=== PATIENT | female | born 1965 | race Caucasian/White ===

== ENCOUNTER 2024-02-07 10:40 | Emergency (ER) | payer OTHER, SELFPAY ==
[2024-02-07] VITALS (35 sets, daily range): BP systolic 62–101; BP diastolic 48–82; PULSE 99–148; RESP 9–31; TEMP 36.2–37.2; O2SAT 92–99
--- NOTE | ~2024-02-07 | CT_ITS ---
EXAMINATION: CT guide absc cath placement DATE: 02/07/2024 16:12 INDICATION: Subdiaphragmatic left upper quadrant abscess TECHNIQUE: The procedure including the risks and benefits was discussed with the patient. Risks discu ssed included bleeding and infection. The patient understood the risks and benefits and agreed to pro ceed. The patient was confirmed to be receiving appropriate antibiotic coverage. The skin overlying the anterior left upper quadrant was prepped and draped in usual sterile fashion. Anesthetic was adm inistered with 1% lidocaine subcutaneously. An 8.5 Fr catheter was inserted into the peritoneal fluid collection by trocar technique. The metal stiffener and trocar needle were removed, and the pigtail tip was locked. Position was confirmed by CT. The catheter was stitched to the skin with suture. Lavinia iotic ligament and a sterile dressing were applied. 50 mL of fluid was aspirated and sent to lab for Gram stain and cultures. The catheter was then attached to suction drainage and was draining addition al purulent fluid at the conclusion of the procedure. There were no immediate complications. The dose -length product was 134.19 mGy-cm. FINDINGS: CT images demonstrate the catheter within the left upper quadrant gas and fluid containing abscess. 50 mL of opaque greenish-yellow foul-smelling and purulent appearing fluid was aspirated for testing. IMPRESSION: 1. Successful CT-guided left upper quadrant abscess drainage. 2. 50 mL fluid was sent for aerobic and anaerobic cultures. Reviewed, dictated and finalized at location A.
--- NOTE | ~2024-02-07 | XR_ITS ---
Portable chest x-ray Comparison: 09/06/2005 Clinical History: Dyspnea Findings: There is mild bibasilar hazy airspace disease. Minimal left pleural effusion. Cardiomedia stinal silhouette is stable. Bones and soft tissues are unremarkable. Impression: Probable mild bibasilar pulmonary edema/atelectasis. Small left pleural effusion. Reviewed, dictated and finalized at location . Impression: Probable mild bibasilar pulmonary edema/atelectasis. Small left pleural effusion.
--- NOTE | ~2024-02-07 | CT_ITS ---
EXAMINATION: CTA chest abdomen pelvis DATE: 02/07/2024 12:16 INDICATION: Dyspnea. Hypotension. Assess for dissection. TECHNIQUE: Computed tomographic angiography (CTA) of the chest, abdomen, and pelvis was performed wit hout and with 100 mL Omnipaque-350 intravenous contrast. Volume-rendered 3D-reconstructions of the ao rta and large arteries were constructed by the technologist on a separate workstation. Automated expo sure control and iterative reconstruction technique were employed. The dose-length product was 1360.6 7 mGy-cm. COMPARISON: None FINDINGS: Chest: Mild elevation of left hemidiaphragm. Very small left pleural effusion. There is consolidation with f luid-filled airspace and bronchi at the basilar segments of the left lower lobe would suggest the con solidation represents combination of atelectasis and potentially superimposed pneumonia. Mild right b asilar atelectasis. No pulmonary edema, right-sided pleural effusion or pneumothorax. Heart size is n ormal. Atherosclerotic coronary artery calcifications. Small pericardial effusion. Thoracic aorta is normal in caliber with no dissection. No pathologically enlarged thoracic lymphadenopathy. Mild thora cic spondylosis with Schmorl's nodes along a few of the endplates in the thoracic spine. Abdomen and pelvis: Postoperative change of prior Christianne-en-Y gastric bypass procedure. Cholecystectomy clips the gallbladd er fossa. Liver, pancreas, right adrenal gland and and bilateral kidneys are normal. 3.6 x 3.3 cm het erogeneously enhancing left adrenal mass. There is a large loculated gas and fluid collection underly ing the elevated left hemidiaphragm which measures 13.8 x 10.2 x 10.2 cm. There are few smaller locul ated fluid collections along the spleen the largest measuring 3.2 x 2.8 cm. No bowel obstruction. Dis tended bladder is unremarkable. The uterus is not identified and has likely been surgically resected. No pathologically enlarged abdominal or pelvic lymphadenopathy. Abdominal aorta is normal in caliber with minimal scattered atherosclerotic plaque and no dissection. Severe lumbar spondylosis. IMPRESSION: 1. Large left subdiaphragmatic gas and fluid collection as well as a few additional significant smal ler loculated perisplenic fluid collections in the left upper quadrant which are suspicious for absce ss of indeterminate etiology. 2. Consolidation at the bilateral lung bases due to recent heart atelectasis although there appears b e some decreased parenchymal enhancement in the collapsed basilar segments of the left lower lobe zay picious for superimposed pneumonia. 3. Very small left pleural effusion. 4. Small pericardial effusion. 5. 3.6 cm heterogeneously enhancing left adrenal mass which could be either benign cystadenoma or mal ignant either primary or metastatic. Consider further evaluation with pre and postcontrast MRI and co rrelation with any prior outside imaging if available. Reviewed, dictated and finalized at location A. IMPRESSION: 1. Large left subdiaphragmatic gas and fluid collection as well as a few addit ional significant smaller loculated perisplenic fluid collections in the left u pper quadrant which are suspicious for abscess of indeterminate etiology. 2. Consolidation at the bilateral lung bases due to recent heart atelectasis al though there appears be some decreased parenchymal enhancement in the collapsed basilar segments of the left lower lobe suspicious for superimposed pneumonia. 3. Very small left pleural effusion. 4. Small pericardial effusion. 5. 3.6 cm heterogeneously enhancing left adrenal mass which could be either abiodun ign cystadenoma or malignant either primary or metastatic. Consider further cecily luation with pre and postcontrast MRI and correlation with any prior outside im aging if availabl
--- NOTE | 2024-02-07 10:47 | ECG_ITS ---
Test Date: 2024-02-07 10:50:34 Measurements Intervals [place] Rate: 136 P: 26 WA: 135 QRS: -32 QRSD: 126 T: 116 QT: 325 QTc: 489 Interpretive Statements SINUS TACHYCARDIA LEFT AXIS DEVIATION INTRAVENTRICULAR CONDUCTION DELAY LEFT VENTRICULAR HYPERTROPHY WITH ST-T CHANGE CANNOT R/O SEPTAL INFARCT, AGE INDETERMINATE BASELINE ARTIFACT- I, II, III, AVR, AVL, AVF ABNORMAL ECG No previous ECG available for comparison Electronically Signed On 02-07-2024 10:59:47 CDT by Quintin Larkin D.O.
--- NOTE | 2024-02-07 10:59 | PC.NURSE ---
Pt with hx HTN, DM, seizures, gastric bypass, chronic low blood pressure presents from home with at least one week of abdominal pain, vomiting, loose stools, not being able to eat much. Pt pale, tachycardic, new oxygen requirement, short of breath. A&Ox4. States she takes Lisinopril, lamotrigine, metformin, lasix, baclofen, trazodone. IV established, at bedside.
[2024-02-07] MEDS: LACTATED RINGERS 1,000 ML 999 ML IV CONT ×4 (11:17→14:48)
[2024-02-07] MEDS: ONDANSETRON INJ 4 MG/2 ML VIAL IV PUSH (11:17)
[2024-02-07] MEDS: MORPHINE SULFATE (*CRX) 4 MG/ML INJ IV PUSH (11:18)
[2024-02-07 11:19] LABS: Hematocrit 40.2 % (37.0-47.0); Hemoglobin 12.6 g/dL (12.0-15.0); Mean Corpuscular HGB Conc 31.3 g/dl (32-36); Mean Corpuscular Hemoglobin 32.3 pg (26-34); Mean Corpuscular Volume 103.1 fl (80-100); Mean Platelet Volume 10.5 fl (7.4-10.4); Platelet Count Result 542 k/mm3 (150-375); Red Cell Distribution Width 13.2 % (11.5-14.5); White Blood Count 21.9 K/mm3 (4.5-10.0)
[2024-02-07 11:29] LABS: Fractional Inspired Oxygen 36 %; HCO3 VBG 14.6 mEq/l (24.0-30.0); pH VBG 7.294 (7.300-7.400)
[2024-02-07 11:31] LABS: PCO2 VBG 30.8 mmHg (42.0-48.0); PO2 VBG < 27.0 mmHg (35.0-45.0)
[2024-02-07 11:32] LABS: Device NASAL CANNULA
[2024-02-07 11:52] LABS: Beta-Hydroxybutyrate/Acetoacetate 0.95 mmol/L (0.02-0.27)
[2024-02-07 11:53] LABS: Albumin Level 3.5 g/dL (3.5-5.1); Alkaline Phosphatase 143 U/L (38-126); Anion Gap 26 mmol/L (4-12); Aspartate Amino Transferase 106 U/L (14-36); Bilirubin,Total 0.9 mg/dL (0.2-1.3); Blood Urea Nitrogen 10 mg/dL (7-17); Calcium 8.7 mg/dL (8.4-10.2); Carbon Dioxide 14 mmol/L (22-30); Chloride 90 mmol/L (98-107); Estimated CRCL calculation 58 ml/min; Estimated Glomerular Filt Rate 57; Glucose 286 mg/dL (65-110); Lipase 75 U/L (23-300); Potassium 3.3 mmol/L (3.4-5.0); Sodium 130 mmol/L (137-145)
[2024-02-07 12:00] LABS: Alanine Aminotransferase 49 U/L (6-35); NT Pro B Type Natriuretic Pept 1370 pg/mL (19.9-100)
--- NOTE | 2024-02-07 12:00 | PC.NURSE ---
Pt appears slightly more responsive, states he feels like she's getting some color back in her face after first liter of fluids. Second liter hung, pt going to CT now on monitor.
[2024-02-07 12:29] LABS: Band Neutrophils Percent 7 % (0-6); Lymphocytes Absolute Manual 3.06 K/mm3 (1.1-4.5); Metamyelocytes Percent 5 %; Monocytes Absolute Manual 0.65 K/mm3 (0.1-0.90); Monocytes Percent Manual 3 % (3-9); Myelocytes Percent 4 %; Neutrophils Percent Manual 67 % (46-73); Platelet Estimate Increased (Adequate); Schistocytes None Seen; Total Cells Counted 100
[2024-02-07 12:30] LABS: Macrocytosis 1+ (NORMAL)
[2024-02-07] MEDS: CEFEPIME 2 GM/NS 50 ML 2 GM/50 ML BAG IVPB (13:42)
--- NOTE | 2024-02-07 13:46 | PC.NURSE ---
MD came to bedside to update pt and on imaging results and plan for drain vs surgery which may be here vs transfer. MD waiting to hear back from radiologist to determine further plan. Pt has third liter LR infusing, antibiotics infusing, blood pressure remains lower, MAPS 65+. Pt A&Ox4, discussing things with and asking appropriate questions. Remains on 4L NC.
[2024-02-07 13:58] LABS: Partial Thromboplastin Time 28.7 Seconds (22.3-36.8)
[2024-02-07 14:01] LABS: INR 1.3; Prothrombin Time 16.5 Seconds (11.1-14.7)
[2024-02-07] MEDS: NOREPINEPHRINE 8 MG/D5W 250 ML 8 MG/250 ML BAG 9.38 MG IV CONT (14:10)
--- NOTE | 2024-02-07 14:11 | ECG_ITS ---
Test Date: 2024-02-07 14:17:22 Measurements Intervals [place] Rate: 108 P: 40 PA: 128 QRS: 13 QRSD: 96 T: 108 QT: 316 QTc: 425 Interpretive Statements SINUS TACHYCARDIA BORDERLINE R WAVE PROGRESSION, ANTERIOR LEADS NONSPECIFIC ST-T WAVE ABNORMALITY- ANTEROLAT/HIGH LAT LEADS Compared to ECG 02/07/2024 10:50:34 HEART RATE HAS DECREASED Electronically Signed On 02-07-2024 15:30:45 CDT by Quintin Larkin D.O.
[2024-02-07 14:43] LABS: Reflex Lactic Acid Yes or No Add Lactic
[2024-02-07 14:45] LABS: Troponin I 0.207 ng/mL (0.000-0.034)
[2024-02-07 14:48] LABS: MRSA (PCR) NOT DETECTED (NOT DETECTE)
[2024-02-07] MEDS: VANCOMYCIN 2,000 MG/NS 500 ML 2,000 MG/500 ML BAG 250 MG IVPB (15:04)
--- NOTE | 2024-02-07 15:08 | PC.NURSE ---
Pt to radiology for drain placement at this time. Plan to transfer to [facility] immediately following procedure. MD spoke with pt and pt's , questions answered.
--- NOTE | 2024-02-07 20:48 | ED.RECABL ---
HPI - Recheck/Abnormal Lab/Rx General Chief Complaint: Recheck/Abnormal Lab/Rx Stated Complaint: low bp Time Seen by Provider: 02/07/24 10:53 History of Present Illness HPI narrative: This is a 58-year-old female with a past medical history significant for hypertension and diabetes as well as previous seizure history with good control on lamotrigine who presents to the emergency department today with a chief complaint of nausea, vomiting, abdominal pain, low blood pressure. Patient appears very ill on initial presentation to the emergency department. She is accompanied by family member who is her providing additional collateral information. Patient appears in moderate respiratory distress with deep respiratory patterns concerning for acidosis. Resuscitation was ongoing while history was being taken by family. Patient apparently for last 2 weeks has been having worsening nausea, vomiting, intractable abdominal pain that is intermittent in nature and worsening with food. She has been having some associated diarrhea and diffuse watery loss without any bright red blood or dark stools. Denies any chest pain or difficulty in breathing denies any headache, fever, chills. 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 Denies any recent injuries or traumas. Her family member presents me with a blood pressure diary that states that she has been having decreasing blood pressure and increasing heart rate over last several measurements for the last week. Most recently her blood pressures have been in the 70s to 80s systolic and tachycardia persisting. Patient was made a medical resuscitation given her vitals and concerning examination. Related Data Home Medications Medication Instructions Recorded Confirmed furosemide 20 mg tablet mg 02/07/24 gabapentin 300 mg capsule mg 02/07/24 lamotrigine 25 mg tablet mg 02/07/24 lisinopril 10 mg tablet mg 02/07/24 metformin 500 mg tablet mg 02/07/24 pravastatin 80 mg tablet mg 02/07/24 trazodone 50 mg tablet mg 02/07/24 Allergies Allergy/AdvReac Type Severity Reaction Status Date / Time Sulfa (Sulfonamide Allergy Mild Rash Verified 02/07/24 12:11 Antibiotics) sulfanilamide Allergy Unknown Rash Verified 02/07/24 12:11 Review of Systems Review of Systems: as reviewed above in HPI [facility] Family History Family History Other Cerebrovascular accident Family history of arthritis Family history of cardiovascular disease Family history of lupus erythematosus Family history of seizure disorder Hypertension Social History Social History Smoking status: Smoker, status unknown Alcohol intake: never Exam Narrative: GENERAL: toxic appearing, very ill, moderate respiratory distress with deep respirations HEAD: [Normocephalic, atraumatic.] EYES: [PERRLA and EOMI.] bilateral conjunctival pallor ENT: Nares clear, no rhinorrhea or epistaxis. Mucous membranes moist. NECK: Supple. CHEST: [Clear to auscultation. No respiratory distress.] HEART: [Regular rate and rhythm]. No murmur heard. [Normal peripheral pulses.] ABDOMEN: [Soft, nondistended], tender to palpation in the left upper quadrant and left flank, no rebound or peritonitis EXTREMITIES: Normal range of motion. 1+ edema SKIN: Warm, dry, no rash. NEURO: [No focal deficits]. Alert and oriented [x3.] PSYCH: [Normal mood and affect.] Course Vital Signs Vital signs: Vital Signs Temperature 36.2 C L 02/07/24 10:42 Pulse Rate 148 H 02/07/24 10:42 Respiratory Rate 30 H 02/07/24 10:42 Blood Pressure 101/82 02/07/24 10:42 Pulse Oximetry 92 02/07/24 10:42 Oxygen Delivery Room Air 02/07/24 10:42 Temperature 37.0 C 02/07/24 16:26 Pulse Rate 100 02/07/24 16:26 Respiratory Rate 19 02/07/24 16:26 B
[2024-02-11 08:23] LABS: Lamotrigine Lamictal <0.5 mcg/mL (2.5-15.0)
== END 2024-02-07 17:05 | disposition short-term general hospital (02) ==
PROVIDERS: Emergency Provider Student in an Organized Health Care Education/Training Program; PCP Internal Medicine
DX: K65.1 Peritoneal abscess (principal); R65.21 Severe sepsis with septic shock; J18.9 Pneumonia, unspecified organism; I10 Essential (primary) hypertension; E11.9 Type 2 diabetes mellitus without complications; G40.909 Epilepsy, unspecified, not intractable, without status epilepticus; Z98.84 Bariatric surgery status; E27.9 Disorder of adrenal gland, unspecified; R00.0 Tachycardia, unspecified; I45.9 Conduction disorder, unspecified; I51.7 Cardiomegaly; R94.31 Abnormal electrocardiogram [ECG] [EKG]; Z79.84 Long term (current) use of oral hypoglycemic drugs; Z79.899 Other long term (current) drug therapy
CPT/HCPCS: 36415; 51702; 71045; 71275; 74174; 75989; 80053; 80175; 82010; 82803; 83605; 83690; 83880; 84484; 85025; 85610; 85730; 87040; 87070; 87075; 87076; 87077; 87185; 87205; 87641; 93005; 96361; 96365; 96366; 96367; 96375; 99285; C1729; C1769; J0692; J2270; J2405; J3370; J7120; Q9967